=== PATIENT | female | born 1995 | race American Indian/Alaskan Native ===

== ENCOUNTER 2020-02-23 09:04 | Observation (INO) | payer OTHER ==
[2020-02-23 10:26] LABS: Hemoglobin 10.5 gm/dl (10.1-14.3); Mean Corpuscular HGB Conc 34 % (30-34); Mean Corpuscular Volume 80 fl (79-97); Platelet Count 249 K/mm3 (140-440); Red Blood Count 3.85 M/mm3 (3.65-5.03); Red Cell Distribution Width 13.1 % (13.2-15.2)
[2020-02-23 10:32] LABS: Bacteria,Urine 2+ /HPF (Negative); Bilirubin,Urine NEG (Negative); Blood,Urine NEG (Negative); Color,Urine Yellow (Yellow); Mucus,Urine 2+ /HPF; Urobilinogen,Urine < 2.0 mg/dL (<2.0)
[2020-02-23 10:50] LABS: Alanine Aminotransferase 9 units/L (7-56); Uric Acid 3.2 mg/dL (3.5-7.6)
--- NOTE | 2020-02-23 12:21 | History and Physical Report ---
History of Present Illness Date of examination: 02/23/20 Date of admission: 02/23/20 09:04 History of present illness: 24 yo G 7 P 1060 at 34.5 weeks was sent by [facility] to monitor her BGs (GDM) and her BPs (newly elevated) and to check labs and 24 hr urine. No preeclamptic sxs. Pt is a [place] pt. currently unavailable. PT denies any other issues. Past History Past Medical History: other (GDM) Past Surgical History: section (x 1) - Obstetrical History Expected Date of Delivery: 03/31/20 Actual Gestation: 34 Week(s) 5 Day(s) : 7 Hx # Term Pregnancies: 1 Spontaneous Abortions: 6 Number of Living Children: 0 Medications and Allergies Allergies Allergy/AdvReac Type Severity Reaction Status Date / Time No Known Allergies Allergy Unverified 12/06/19 13:44 Home Medications Medication Instructions Recorded Confirmed Last Taken Type Vit-Fe Fumar-FA [ 1 tab PO QDAY 12/06/19 02/23/20 02/22/20 10:00 History Vitamin] Labetalol 100mg TAB 100 caplet PO Q12HR 02/23/20 02/23/20 02/22/20 22:00 History Active Meds: Active Medications Labetalol HCl (Labetalol) 200 mg PO BID JIMENEZ Last Admin: 02/23/20 11:00 Dose: 200 mg Documented by: Review of Systems All systems: negative (except HPI) - Vital Signs Vital signs: Vital Signs Pulse BP 102 H 140/77 02/23/20 09:53 02/23/20 09:53 Temp Pulse Resp BP Pulse Ox 98.1 F 113 H 16 145/76 02/23/20 10:19 02/23/20 11:24 02/23/20 10:19 02/23/20 11:24 - Obstetrical FHR: category 1 Uterine Contraction Pattern: Absent Results Result Diagrams: 02/23/20 09:45 02/23/20 09:45 Abnormal lab results 02/23/20 02/23/20 02/23/20 Range/Units 09:45 09:45 09:45 WBC 15.0 H (4.5-11.0) K/mm3 MCH 27 L (28-32) pg RDW 13.1 L (13.2-15.2) % Creatinine 0.3 L (0.6-1.2) mg/dL POC Glucose (70-105) Uric Acid 3.2 L (3.5-7.6) mg/dL Lactate Dehydrogenase 192 H (91-180) units/L U Epithel Cells (Auto) 32.0 H (0-13.0) /HPF 10/ Range/Units 10:19 WBC (4.5-11.0) K/mm3 MCH (28-32) pg RDW (13.2-15.2) % Creatinine (0.6-1.2) mg/dL POC Glucose 120 H (70-105) Uric Acid (3.5-7.6) mg/dL Lactate Dehydrogenase (91-180) units/L U Epithel Cells (Auto) (0-13.0) /HPF All other labs normal. Assessment and Plan - Patient Problems (1) Gestational diabetes Current Visit: Yes Status: Acute Plan to address problem: First BG was 120. Will cont to observe. PT was just told to start a po medication for this but has not picked it up yet. (2) Elevated blood pressure affecting in third trimester, antepartum Current Visit: Yes Status: Acute Plan to address problem: Will observe and check labs and urine per [facility] recommendations. Will also have [facility] consult.
[2020-02-23] MEDS ORDERED: DEXTROSE 50% IN WATER (25GM) 50 ML SYRINGE IV PRN (14:54)
[2020-02-23] MEDS: INSULIN REGULAR, HUMAN 100 UNIT/ML 3ML VIAL SUB-Q SCH ×2 (16:20→17:15)
[2020-02-23] MEDS ORDERED: DINOPROSTONE 10 MG VAG SUPP VG ONE (18:30)
[2020-02-24] MEDS ORDERED: FAMOTIDINE 20 MG TAB PO ONE (00:28)
--- NOTE | 2020-02-24 10:08 | Progress Note ---
Assessment and Plan - Patient Problems (1) Elevated blood pressure affecting in third trimester, antepartum Current Visit: Yes Status: Acute Plan to address problem: --Continue labetolol 200mg BID, titrate PRN --24H TP pending --[facility] consulted --Dispo pending BPs (2) Gestational diabetes Current Visit: Yes Status: Acute Plan to address problem: --Insulin per protocol, CBGs per routine Subjective - Subjective Date of service: 02/24/20 Principal diagnosis: elevated blood pressure and elevated glucose Interval history: Patient refused labetolol overnight because she was "tired." Understands that BP meds make her blood pressure go down. Patient denies YADAV, blurry vision. Reports that her BP was elevated in the clinic because she was just arguing. Patient also upset that she was prescribed pill of diabetes and home, but insulin while inpatient. Patient now understanding plan of care. Objective - Vital Signs Vital Signs: Vital Signs - 12hr 02/24/20 02/24/20 02/24/20 00:04 00:06 04:00 Temperature 98.8 F Pulse Rate 100 H 120 H Respiratory 18 Rate Blood Pressure 152/81 147/86 Blood Pressure [Right] 02/24/20 02/24/20 02/24/20 04:01 05:56 05:58 Temperature 98.5 F 98.6 F Pulse Rate 91 H Respiratory 12 18 Rate Blood Pressure 144/88 Blood Pressure [Right] 02/24/20 02/24/20 07:20 10:00 Temperature 98.6 F Pulse Rate 87 104 H Respiratory 18 Rate Blood Pressure 157/86 224/86 Blood Pressure 157/86 [Right] - Exam Abdomen: Present: normal appearance, normal bowel sounds Uterine Contraction Pattern: Absent - Labs Labs: Abnormal Labs 02/23/20 02/23/20 02/23/20 09:45 09:45 09:45 WBC 15.0 H MCH 27 L RDW 13.1 L Creatinine 0.3 L POC Glucose Uric Acid 3.2 L Lactate Dehydrogenase 192 H U Epithel Cells (Auto) 32.0 H 02/23/20 02/23/20 02/23/20 10:19 14:57 19:31 WBC MCH RDW Creatinine POC Glucose 120 H 214 H 194 H Uric Acid Lactate Dehydrogenase U Epithel Cells (Auto) 02/24/20 06:11 WBC MCH RDW Creatinine POC Glucose 122 H Uric Acid Lactate Dehydrogenase U Epithel Cells (Auto) Laboratory Results - last 24 hr 02/23/20 02/23/20 02/23/20 09:45 09:45 09:45 WBC 15.0 H RBC 3.85 Hgb 10.5 Hct 31.0 MCV 80 MCH 27 L MCHC 34 RDW 13.1 L Plt Count 249 Creatinine 0.3 L Estimated GFR > 60 POC Glucose Uric Acid 3.2 L AST 11 ALT 9 Lactate Dehydrogenase 192 H Urine Color Yellow Urine Turbidity Cloudy Urine pH 6.0 Ur Specific [place] 1.021 Urine Protein 30 mg/dl Urine Glucose (UA) 50 Urine Ketones Neg Urine Blood Neg Urine Nitrite Neg Urine Bilirubin Neg Urine Urobilinogen < 2.0 Ur Leukocyte Esterase Neg Urine WBC (Auto) 3.0 Urine RBC (Auto) 2.0 U Epithel Cells (Auto) 32.0 H Urine Bacteria (Auto) 2+ Urine Mucus 2+ Blood Type Antibody Screen 02/23/20 02/23/20 02/23/20 09:45 10:19 14:57 WBC RBC Hgb Hct MCV MCH MCHC RDW Plt Count Creatinine Estimated GFR POC Glucose 120 H 214 H Uric Acid AST ALT Lactate Dehydrogenase Urine Color Urine Turbidity Urine pH Ur Specific [place] Urine Protein Urine Glucose (UA) Urine Ketones Urine Blood Urine Nitrite Urine Bilirubin Urine Urobilinogen Ur Leukocyte Esterase Urine WBC (Auto) Urine RBC (Auto) U Epithel Cells (Auto) Urine Bacteria (Auto) Urine Mucus Blood Type O POSITIVE Antibody Screen Negative 02/23/20 02/24/20 19:31 06:11 WBC RBC Hgb Hct MCV MCH MCHC RDW Plt Count Creatinine Estimated GFR POC Glucose 194 H 122 H Uric Acid AST ALT Lactate Dehydrogenase Urine Color Urine Turbidity Urine pH Ur Specific [place] Urine Protein Urine Glucose (UA) Urine Ketones Urine Blood Urine Nitrite Urine Bilirubin Urine Urobilinogen Ur Leukocyte Esterase Urine WBC (Auto) Urine RBC (Auto) U Epithel Cells (Auto) Urine Bacteria (Auto) Urine Mucus Blood Type Antibody Screen
--- NOTE | 2020-02-24 12:59 | Consultation ---
History of Present Illness Consult date: 02/24/20 Requesting physician: VEE GOFF JR History of present illness: HPI Sent in by [facility] yesterday - See [facility] US/Consult dated 02/23/20 Sent in for poorly controlled DM DFM ?? H/O IUFD, CHTN - Had Declined Insulin will take Glyburide " they gave me script yesterday " Reports all 6 preg losses at less than 8 weeks Reports loss of baby at 9 months from SIDS -------- BP's stable High 141/92 - recent 136/79, 123/59, 127/61 Denies YADAV's Scot[place] or RUQ pain PIH Labs WNL UA spot at 30 24 Hour urine pending BS stable high 214 and 194 last to 120's HbA1c pending to start Glyburide EFM Categ 1 - Pos Accels - baseline 130's Recommendations 1. UA Pos for 2 plus bact send for Urine C&S and would treat 2. 24 Hour urine pending 3. If remains stable - BS and BP's will allow discharge with strict PIH instructions - call for S/S of PIH 4. Iron for anemia 5. Encourage to record all BS's and call for elevated BS and start Glyburide - 6. Call for DFM's - kick counting reviewed 7. Delivery recommended for S/S of severe Preeclampsia or at 36 to 37 weeks 8. HbA1c and Fructosamine pending 9. Discussed with Dr. Goff Past History Past Medical History: other (GDM) Past Surgical History: section (x 1) - Obstetrical History : 7 Medications and Allergies Allergies Allergy/AdvReac Type Severity Reaction Status Date / Time No Known Allergies Allergy Unverified 12/06/19 13:44 Home Medications Medication Instructions Recorded Confirmed Last Taken Type Vit-Fe Fumar-FA [ 1 tab PO QDAY 12/06/19 02/23/20 02/22/20 10:00 History Vitamin] Labetalol 100mg TAB 100 caplet PO Q12HR 02/23/20 02/23/20 02/22/20 22:00 History Active Meds: Active Medications Dextrose (D50w (25gm) Syringe) 50 ml IV Q30MIN PRN; Protocol PRN Reason: Hypoglycemia Insulin Human Regular (Humulin R) 0 unit SUB-Q Q6H JIMENEZ; Protocol Last Admin: 02/23/20 17:15 Dose: 3 unit Documented by: Labetalol HCl (Labetalol) 200 mg PO BID JIMENEZ Last Admin: 02/24/20 10:27 Dose: 200 mg Documented by: - Vital Signs Vital signs: Vital Signs Pulse BP 102 H 140/77 02/23/20 09:53 02/23/20 09:53 Temp Pulse Resp BP Pulse Ox 98.6 F 85 18 127/61 02/24/20 07:20 02/24/20 12:29 02/24/20 07:20 02/24/20 12:29 Results Result Diagrams: 02/23/20 09:45 02/23/20 09:45 Abnormal lab results 02/23/20 02/23/20 02/24/20 Range/Units 14:57 19:31 06:11 POC Glucose 214 H 194 H 122 H (70-105) 02/24/20 Range/Units 10:55 POC Glucose 127 H (70-105) All other labs normal.
[2020-02-24 13:01] VITALS: BP 139/73
[2020-02-24] MEDS: INSULIN REGULAR, HUMAN 100 UNIT/ML 3ML VIAL SUB-Q SCH (14:56)
[2020-02-24 15:57] LABS: Creatinine 24 Hour,Urine 2.1 (0.8-2.8); Creatinine,Urine 92.6 mg/dL (0.1-20.0)
--- NOTE | 2020-02-24 16:46 | Discharge Summary ---
Providers - Providers Date of Admission: 02/23/20 09:04 Date of discharge: 02/24/20 Attending physician: PATEL HUNTER 02/23/20 10:41 Consult to Physician [CONS] Stat Comment: UNCONTROLLED DM/HTN Consulting Provider: SAGAR GREGORY Physician Instructions: NONE Reason For Exam: GDM Primary care physician: PATEL HUNTER Hospitalization Reason for admission: other (elevated blood pressures and elevated blood glucose) Pertinent studies: TP 299 PIH labs wnl Hospital course: Patient presenting to labor and delivery from [facility] given elevated for blood pressures with underlying chronic hypertension and elevated blood glucose with gestational diabetes. Patient intermittently taken medications at home. Labet alol increased to 100 to 200mg BID For patient's diabetes, patient was initially started on insulin sliding scale, however patient refused insulin and decision was made with [facility] to transition to glyburide at patient's home dose. Patient initially refusing labetalol overnight however was compliant in the morning with blood pressures within normal limits. After consult from [facility], plan was to discharge patient with close follow-up. Condition at discharge: Good Disposition: [id number] TO HOME OR SELFCARE - Discharge Diagnoses (1) Elevated blood pressure affecting in third trimester, antepartum Status: Acute Comment: See above (2) Gestational diabetes Status: Acute Qualifiers: Gestational diabetes mellitus control: oral hypoglycemic-controlled Trimester: third trimester Qualified Code(s): O24.415 - Gestational diabetes mellitus in , controlled by oral hypoglycemic drugs Comment: See above Plan - Discharge Medications Prescriptions: labetaloL [Labetalol 200mg TAB] 200 mg PO BID #60 tablet - Provider Discharge Summary Additional instructions: [] Smoking cessation referral if applicable(refer to patient education folder for contact #) [] Refer to [facility]'s [facility] Booklet Call your doctor immediately for: * Fever > 100.5 * Heavy vaginal bleeding ( >1 pad per hour) * Severe persistent headache * Shortness of breath * Reddened, hot, painful area to leg or breast * Drainage or odor from incision. * Keep incision clean and dry at all times and follow doctor's instructions regarding bathing/showering - Follow up plan Follow up: PATEL HUNTER MD [Primary Care Provider] - 7 Days Forms: [facility] Discharge Summary
== END 2020-02-24 17:00 | disposition home or self-care (01) ==
LOC: LD 09:04
PROVIDERS: ADMIT Obstetrics & Gynecology; ATTEND Obstetrics & Gynecology
DX: O24.419 Gestational diabetes mellitus in pregnancy, unspecified control (principal); O26.893 Other specified pregnancy related conditions, third trimester; R03.0 Elevated blood-pressure reading, without diagnosis of hypertension; Z3A.34 34 weeks gestation of pregnancy; Z79.4 Long term (current) use of insulin; Z98.891 History of uterine scar from previous surgery
CPT/HCPCS: 36415; 81001; 82565; 82570; 82962; 83615; 84156; 84450; 84460; 84550; 85027; 86850; 86900; 86901; 96372; G0378; G0379; J1815